=== PATIENT | female | born 1985 | race Caucasian/White ===

== ENCOUNTER 2024-01-19 10:15 | Emergency (ER) | payer OTHER, SELFPAY ==
--- NOTE | ~2024-01-19 | XR_ITS ---
EXAMINATION: XR HAND, RIGHT CLINICAL INFORMATION: Pain and swelling over second MCP joint COMPARISON: None available. TECHNIQUE: PA, lateral, and oblique views of the right hand. FINDINGS: The bones and soft tissues are normal. No fracture. Alignment is anatomic. Joint spaces are maintained. No erosions or soft tissue calcifications. XR/XR hand RT min 3V IMPRESSION: Normal right hand.
[2024-01-19 10:42] VITALS: PULSE 70; RESP 16; TEMP 36.6; O2SAT 98; BMI 29.3
[2024-01-19 10:46] VITALS: BP 114/72
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
[2024-01-19] MEDS: Acetaminophen 325 MG TABLET 975 MG PO (13:33)
[2024-01-19] MEDS: Diphth,Pertus(ACell),Tet Adult 0.5 ML SYRINGE IM (13:34)
[2024-01-19] MEDS: Amoxicillin/Potassium Clav 875 MG TABLET PO (13:34)
[2024-01-19 14:45] VITALS: BP 120/75; PULSE 72; RESP 20; TEMP 36.6; O2SAT 100
== END 2024-01-19 14:45 | disposition home or self-care (01) ==
PROVIDERS: Emergency Provider Student in an Organized Health Care Education/Training Program
DX: S61.250A Open bite of right index finger without damage to nail, initial encounter (principal); W54.0XXA Bitten by dog, initial encounter; Y93.89 Activity, other specified; Y92.9 Unspecified place or not applicable; Y99.9 Unspecified external cause status; Z23 Encounter for immunization
CPT/HCPCS: 73130; 90471; 90715; 99283; 99284

== ENCOUNTER 2024-03-23 09:12 | Outpatient (AMB) | payer OTHER, SELFPAY ==
--- NOTE | 2024-03-23 09:45 | MHC.OFFWIV ---
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 she has a hx of kidney stones Allergies No Known Allergies [No Known Allergies*] Allergy (Verified 03/23/24 09:57) Do you need a note to return to daycare/school/sports/work: No HPI HPI Comments History of Present Illness Details Here today with concerns for a kidney stone. Reports about 1 week ago developed left-sided back pain that radiates to her left lower abdomen associated with vomiting. Her symptoms have come and go over the last week. Yesterday she developed a headache. She has been doing her best to stay hydrated however given that pain and vomiting she feels that she may be a little bit dehydrated. She is active with Urology lower chronic renal calculi stating that she has 18 stones in the left kidney. Reports that she has chronic microscopic hematuria. She denies fever, vaginal discharge. She does admit to diarrhea -Nonbloody. Review of Systems Const All systems reviewed & are unremarkable except as noted in HPI and below Physical Exam Vital Signs: Last Vital Signs Temp 98.2 F 03/23/24 09:47 Pulse 74 03/23/24 09:47 BP 110/70 03/23/24 09:47 Pulse Ox 98 03/23/24 09:47 Oxygen Delivery Method Room Air 03/23/24 09:47 BMI result Body Mass Index 28.9 Const Other: Awake alert oriented, nontoxic Mucous membranes moist Regular rate and rhythm Normoactive bowel sounds x4, abdomen soft, nontender, no peritoneal signs Negative CVAT bilat however reports that she has improvement in the pain in her left lower quadrant with palpation of her left back Results AMB Urinalysis, Automated UA Leukoctes 0 Deidra/uL Last Edit by ALEXEI Sánchez on 03/23/24 09:54 UA Nitrite Negative Last Edit by ALEXEI Sánchez on 03/23/24 09:54 UA Urobilinogen 0.2 mg/dL Last Edit by ALEXEI Sánchez on 03/23/24 09:54 UA Protein 0 mg/dL Last Edit by ALEXEI Sánchez on 03/23/24 09:54 UA pH 6.0 Last Edit by ALEXEI Sánchez on 03/23/24 09:54 UA Blood 10 Aric/uL Last Edit by ALEXEI Sánchez on 03/23/24 09:54 UA Specific [place] 1.030 Last Edit by ALEXEI Sánchez on 03/23/24 09:54 UA Ketone Negative Last Edit by ALEXEI Sánchez on 03/23/24 09:54 UA Bilirubin 0 mg/dL Last Edit by ALEXEI Sánchez on 03/23/24 09:54 UA Glucose 0 mg/dL Last Edit by ALEXEI Sánchez on 03/23/24 09:54 Results Reviewed Results Reviewed: Laboratory Last Values Urine pH (Auto) 6.0 03/23/24 09:53 Specific [place] (Auto) 1.030 03/23/24 09:53 Urine Protein (Auto) 0 mg/dL 03/23/24 09:53 Glucose (UA)(Auto) 0 mg/dL 03/23/24 09:53 Urine Ketones (Auto) Negative 03/23/24 09:53 Urine Blood (Auto) 10 Aric/uL 03/23/24 09:53 Urine Nitrite (Auto) Negative 03/23/24 09:53 Urine Bilirubin (Auto) 0 mg/dL 03/23/24 09:53 Urine Urobilinogen (Auto) 0.2 mg/dL 03/23/24 09:53 Leukocyte Esterase (Auto) 0 Deidra/uL 03/23/24 09:53 Assessment & Plan Assessment & Plan (1) Renal calculus, left: Code(s): N20.0 - Calculus of kidney Plan: . Plan . Orders: Orders AMB Urinalysis Automated Today Z13.9 - Encounter for screening, unspecified Medications: New amoxicillin-pot clavulanate 875-125 mg 1 tab PO BID 14 tabs 0RF 7 days ondansetron 4 mg PO Q8H PRN 15 tabs 0RF nausea and vomiting 5 days tamsulosin 0.4 mg PO BEDTIME 30 caps 0RF Discontinued amoxicillin-pot clavulanate 875-125 mg Discontinued Reason: Patient Completed Course 1 tab PO BID 5 days 10 tabs 0RF Patient Instructions: Treat today for suspected renal stone with antibiotics and tamsulosin. P.r.n. Zofran to prevent nausea. Advised to liberally hydrated using electrolyte solution as well as cucumber lemon water as this can help renal stones. Please call your urologist on Monday and let them know that you were seen and treated today. Should her symptoms worsen advised to follow-up. Coding Level of Care Code Est Pt Level 4 (49529) Diagnoses Renal calculus, left N20.0
[2024-03-23 09:47] VITALS: BP 110/70; PULSE 74; TEMP 36.8; O2SAT 98; BMI 28.9
== END 2024-03-23 10:38 | disposition home or self-care (01) ==
PROVIDERS: Visit Provider Nurse Practitioner Family
DX: N20.0 Calculus of kidney (principal)
CPT/HCPCS: 81003; 99051; 99214

== ENCOUNTER 2024-05-28 09:15 | Outpatient (AMB) | payer OTHER, SELFPAY ==
--- NOTE | 2024-05-28 09:23 | AM.OFFWIN_ITS ---
Intake Vital Signs 3 05/28/24 09:24 Height 5 ft 1 in Weight 147 lb BMI 27.8 BP 112/80 Blood Pressure Location Lt brachial Position Sitting Pulse 64 Pulse Source Pulse Oximeter Temp 97.4 F Temp Source Temporal Artery Scan Pulse Oximetry (%) 98 Oxygen Delivery Method Room Air Intake Visit Reasons: Belly button piercing infected Intake Note: pt c/o navel piercing infection Patient Tobacco Use Status: Never used Tobacco Allergies No Known Allergies [No Known Allergies*] Allergy (Verified 05/28/24 09:23) Do you need a note to return to daycare/school/sports/work: Yes HPI HPI Comments 2 History of Present Illness0 Details 39 y/o female patient who presents to [facility] in clinic with c/o belly button infection since last week. She had a piecing 14 years ago but has not been wearing any jewelry at the area. Denies fevers, chills, nuasea or vomiting. [facility] Social History Patient Tobacco Use Status: Never used Tobacco Physical Exam Vital Signs: Last Vital Signs Temp 97.4 F 05/28/24 09:24 Pulse 64 05/28/24 09:24 BP 112/80 05/28/24 09:24 Pulse Ox 98 05/28/24 09:24 Oxygen Delivery Method Room Air 05/28/24 09:24 BMI result Body Mass Index 27.8 Const General: comfortable and no acute distress Nutritional Appearance: obese Orientation/consciousness: patient oriented x3 Skin Other: Small abscess filled with yellow drainage, Erythema and tender General skin exam: dry skin and erythema Lesions: lesion noted (belly button) Full body images: 2 1. Small abscess filled with yellow drainage, Erythema and tender Neuro General: patient oriented x3, gait normal and moves all extremities Psych Speech and movement: Normal speech and movement present Assessment & Plan Assessment & Plan (1) Cellulitis of skin: Code(s): L03.90 - Cellulitis, unspecified Plan: Take medications as prescribed Apply warm compress to the skin to allow drainage Acetaminophen for pain relief Medications: New 2 sulfamethoxazole-trimethoprim 800-160 mg (Bactrim DS) 1 tab PO Q12H 14 tabs 0RF 7 days L03.90 - Cellulitis, unspecified Coding Level of Care Code Est Pt Level 3 (42607) Diagnoses Cellulitis of skin L03.90 Time Spent (min) 15
[2024-05-28 09:24] VITALS: BP 112/80; PULSE 64; TEMP 36.3; O2SAT 98; BMI 27.8
== END 2024-05-28 11:06 | disposition home or self-care (01) ==
PROVIDERS: Visit Provider Nurse Practitioner Family
DX: L03.90 Cellulitis, unspecified (principal)
CPT/HCPCS: 99213

== ENCOUNTER → 2024-11-27 15:30 | Outpatient (REF) | payer OTHER, SELFPAY ==
--- NOTE | ~2024-11-27 | US_ITS ---
EXAMINATION: US RETROPERITONEAL LIMITED, LEFT(RENAL ONLY) CLINICAL INFORMATION: Calculus of kidney.. COMPARISON: None available. TECHNIQUE: Real-time imaging of the left kidney. FINDINGS: LEFT KIDNEY: 11.2 x 4.9 x 4 x 1 cm (SAG x AP x TRV). The kidney is normal in size, contour, and echogenicity. Renal cortical thickness is normal. No focal parenchymal lesions. No hydronephrosis. Echogenic renal pyramids. There are multiple small echogenic foci, with twinkle artifact, largest in the lower pole measuring 6 x 3 x 5 mm. These are consistent with calculi. US/US renal LT IMPRESSION: 1. Numerous echogenic foci with twinkle artifact consistent with nonobstructing calculi, largest in the lower pole measuring 6 x 3 x 5 mm. 2. Echogenic renal pyramids, nonspecific, but suggestive of medullary nephrocalcinosis. Differential includes hypercalcemia, medullary sponge kidney, renal tubular acidosis type I, among other less likely etiologies. Electronically signed by: Ravi Singleton MD 11/27/2024 04:40 PM [facility]
== END | disposition home or self-care (01) ==
LOC: HO.US 15:30
PROVIDERS: Visit Provider Internal Medicine
DX: N20.0 Calculus of kidney (principal)
CPT/HCPCS: 76775

== ENCOUNTER → 2024-11-27 15:32 | Outpatient (BNV) | payer OTHER, SELFPAY | PROVIDERS: Visit Provider Radiology Diagnostic Radiology | DX: N20.0 Calculus of kidney (principal) | CPT/HCPCS: 76775 ==

== ENCOUNTER 2024-12-09 06:49 | Emergency (ER) | payer OTHER, SELFPAY ==
--- NOTE | ~2024-12-09 | CT_ITS ---
CLINICAL HISTORY: L flank pain CT abdomen and pelvis without contrast Comparison: 08/01/2018 Findings: The lung bases are clear. Unremarkable gallbladder and solid organs. There are bilateral renal parenchymal calculi. No bowel obstruction, pneumoperitoneum, or pneumatosis. Pelvic contents unremarkable. Normal appendix. No acute fracture. IMPRESSION: No acute findings. This document has been electronically signed by: Gerson Verma MD on 12/09/2024 09:00:51
[2024-12-09 06:54] VITALS: BP 121/70; PULSE 61; RESP 20; TEMP 36.1; O2SAT 98; BMI 27.3
[2024-12-09 07:19] LABS: MANUAL DIFF FLAG NO
--- NOTE | 2024-12-09 07:19 | ED.ABDPAIN ---
HPI - Abdominal Pain General Chief Complaint: Abdominal Pain Stated Complaint: Kidney Stone Time Seen by Provider: 12/09/24 07:07 Source: patient and old records reviewed Mode of arrival: ambulatory Limitations: no limitations History of Present Illness ED Provider: SHANON HPI narrative: 39 yo female with PMH of nephrolithiasis on recent US 11/27/24, ADHD, anxiety here with c/o L anterior upper rib pain x 1 month with intermittent vomiting. She denies fevers, she is urinating more frequently and when she sneezes she urinates. She saw streaks of blood yesterday. She has hx about 6 years ago with urosepsis and ureterolithiasis at [facility]. She saw PCP 11/27/24 with US and they started her on oxycodone which did not really help. No fevers reported. She states she cannot take the pain anymore and she does not like her urologist because he is not taking her pain seriously. MD elicited complaint: flank pain Pertinent past history: kidney stones Onset (ago): month(s) (1) Pain Consistency: constant Location: LUQ and L flank Severity: moderate Quality: aching Radiation: none Migration to: no migration Exacerbating factors: movement Relieving factors: nothing Context: history of similar episodes Associated symptoms: nausea, vomiting, dysuria and hematuria Related Data Home Medications ?Medication ?Instructions ?Recorded ?Confirmed dextroamphetamine-amphetamine ER 1 cap PO QAM 03/23/24 11/27/24 10 mg 24hr capsule,extend release lorazepam 1 mg tablet 1 mg PO BID 03/23/24 11/27/24 venlafaxine 150 mg 150 mg PO DAILY 03/23/24 11/27/24 capsule,extended release 24 hr trazodone 100 mg tablet 100 mg PO BEDTIME PRN 05/28/24 11/27/24 Previous Rx's ?Medication ?Instructions ?Recorded levofloxacin 500 mg tablet 500 mg PO DAILY 5 days #5 tabs 11/27/24 oxycodone 5 mg capsule 5 mg PO Q8H PRN pain 5 days #14 11/27/24 caps cyclobenzaprine 10 mg tablet 10 mg PO TID PRN muscle spasm #20 12/09/24 tabs lidocaine 5 % topical patch 1 patch topical DAILY #30 ea 12/09/24 Allergies Allergy/AdvReac Type Severity Reaction Status Date / Time No Known Allergies Allergy Verified 12/09/24 06:55 [No Known Allergies*] Review of Systems Review of Systems Constitutional : No Weight loss, No Fever, No Chills ENT/Mouth : No sore throat, No Rhinorrhea Eyes: No Swelling, No Redness Cardiovascular : No Chest Pain, No SOB, NoEdema Respiratory : No Cough, No Sputum, No Wheezing Gastrointestinal : Positive Nausea, Positive Vomiting, no Diarrhea, positive abdominal Pain, No Hematochezia, No Melena Genitourinary : pos Dysuria, pos Urinary Frequency, pos Hematuria, No Urgency Musculoskeletal : No joint pain, No Myalgias, No Joint Swelling Skin : No Skin Lesions, No rash Neuro : No Weakness, No Numbness, No Dizziness, No Headache All other systems reviewed and are negative. [facility] Past Medical History Attestation statement: The following information was validated with the patient. Source: old records reviewed Medical History (Updated 12/09/24 @ 09:49 by Lanette Russ DO) Renal calculi Social History Social History Alcohol intake: current Alcohol intake frequency: a few times a month Patient Tobacco Use Status: Never used Tobacco Smoked in Last 30 Days: No Use of substances other than those prescribed or required for medical reasons: No Advance Directives: Yes Advance Directives Information Provided: Yes Advance Directives on File: No Do you have a plan to hurt others: No Plan Physical Exam ED Vital Signs: Vital Signs - 24 hr 12/09/24 06:54 12/09/24 08:47 Temperature 97 F 97.3 F Pulse Rate 61 64 Respiratory Rate 20 14 Blood Pressure 121/70 101/51 L Pulse Oximetry 98 99 Oxygen Delivery Method Room Air Room Air BMI result Body Mass Index 27.3 Appearance: Alert. Oriented X3. No acute distress. Eyes: Pupils equal, round and reactive to light. ENT: Pharynx normal. Neck: Normal inspection. Neck supple. CVS: Normal heart rate and rhythm. Pulses normal. Respiratory: No respiratory distress. Breath sounds normal. Abdomen: Soft and ttp along L lower anterior ribs. Skin: Skin warm and dry. Normal skin color. Normal skin turgor. Extremities: No lower extremity edema. Neuro: Oriented X 3. No motor deficit. No sensory deficit. CN2-12 intact Medical Decision Making Medical Decision Making MDM Narrative: 39 yo female with PMH of nephrolithiasis on recent US 11/27/24, ADHD, anxiety here with c/o 1 month of intermittent n/v, L lower rib pain, urinary frequency and some incontinence with sneezing. She usually goes to [facility] but feels they are not taking her seriously. At this time will obtain CT scan for L flank pain to rule out obstruction given recent US, UA and labs, IV morphine for pain. She has atypical lower rib pain on exam which is not what I would expect for pyelo/renal colic. Differential Diagnosis Differential Diagnoses: The differential diagnosis associated with the presentation includes abd wall strain, renal colic, chronic pain Admission/Observation Consideration of admission/observation: Escalation of care including admission/observation considered no UTI, labs reassuring, no obstructive stone can follow up with PCP/urologist Lab Data [facility] [place] Lab Attestation statement: I reviewed the patient's lab results. 12/09/24 07:15 12/09/24 07:15 Labs: Lab Results 12/09/24 12/09/24 Range/Units 07:15 09:34 WBC 7.1 (4.8-10.8) X10*3/uL RBC 4.44 (4.20-5.50) X10*6/uL Hgb 13.4 (12.0-16.0) g/dl Hct 40.9 (37.0-47.0) % MCV 92.1 (80.0-98.0) fL MCH 30.2 (27.0-33.0) pg MCHC 32.8 (31.0-35.0) g/dl RDW 13.2 (11.0-16.0) % Plt Count 314 (160-400) X10*3/uL MPV 8.3 L (9.4-12.3) fL Immature Gran % (Auto) 0.3 (0.0-0.4) % Neut % (Auto) 54.9 (45-73) % Lymph % (Auto) 26.7 (20-40) % [place] % (Auto) 5.9 (2-11) % Eos % (Auto) 11.6 H (0-4) % Baso % (Auto) 0.6 (0-2) % Lymph # (Auto) 1.9 (1.2-4.9) X10*3/uL [place] # (Auto) 0.4 (0.1-1.2) X10*3/uL Eos # (Auto) 0.8 H (0.0-0.4) X10*3/uL Baso # (Auto) 0.0 (0.0-0.2) X10*3/uL Abs Immat Gran (auto) 0.02 (0.00-0.03) X10*3/uL Absolute Neuts (auto) 3.9 (2.0-8.3) x10*3/uL Absolute Nucleated RBC 0.000 (0.0-0.012) X10*3/uL Nucleated RBC % (auto) 0.0 (0.0-0.2) /100WBC Sodium 139 (135-145) mmol/L Potassium 4.3 (3.3-5.1) mmol/L Chloride 105 (96-108) mmol/L Carbon Dioxide 26 (22-29) mmol/L Anion Gap 12 (12-20) BUN 10 (9-16) mg/dL Creatinine 0.76 (0.5-1.4) mg/dL Estim Creat Clear Calc 83.5 Estimated GFR > 60 Random Glucose 104 (60-115) mg/dL Calcium 9.3 (8.4-10.2) mg/dL Total Bilirubin 0.2 (0.0-1.0) mg/dL Direct Bilirubin < 0.2 (0.0-0.5) mg/dL AST 20 (5-31) U/L ALT 13 (0-31) U/L Alkaline Phosphatase 101 (39-117) U/L Total Protein 7.7 (6.5-8.0) g/dL Albumin 4.3 (3.5-5.0) g/dL Beta HCG, Quant < 2 mIU/mL Urine Color Yellow Urine Appearance Cloudy Urine pH 7.0 (5.0-9.0) Ur Specific [place] 1.015 (1.005-1.025) Urine Protein Negative (Neg-Trace) mg/dL Urine Glucose (UA) Negative (Negative) mg/dL Urine Ketones Negative (Negative) mg/dL Urine Blood Negative (Negative) Urine Nitrite Negative (Negative) Ur Leukocyte Esterase Negative (Negative) Urine RBC 0-2 (0-2) /HPF Urine WBC 0-5 (0-5) /HPF Ur Squamous Epith Cells 11-20 (0-2) /HPF Urine Bacteria 4+ (None Seen) Hyaline Casts 0-2 (0-2) /LPF Independent Interpretation I performed an independent interpretation of an: CT Scan (n obstructing stone) Radiology Impression Discussion of test interpretation with radiology: I have reviewed the radiologist's reading. External Record Review External record reviewed: Outpatient record and Prior outpatient labs Prescription Management I considered prescription management with: Pain Medication and Other Medications Administered Discontinued Medications Generic Name Dose Route Start Last Admin Trade Name Freq PRN Reason Stop Dose Admin Sodium Chloride 1,000 mls @ 999 mls/hr 12/09/24 07:31 12/09/24 09:07 Ns IV 12/09/24 08:31 Infused .Q1H1M ONE Infusion Ketorolac Tromethamine 15 mg 12/09/24 07:31 12/09/24 07:44 Ketorolac Tromethamine 15 Mg/Ml Vial IVPUSH 12/09/24 07:32 15 mg ONCE ONE Administration Morphine Sulfate 4 mg 12/09/24 07:31 12/09/24 07:44 Morphine Sulfate 4 Mg/Ml Cartridge IVPUSH 12/09/24 07:32 4 mg ONCE ONE Administration Protocol Ondansetron HCl 4 mg 12/09/24 07:31 12/09/24 07:44 Ondansetron Hcl 4 Mg/2 Ml Vial IVPUSH 12/09/24 07:32 4 mg ONCE ONE Administration Discharge Plan Discharge Clinical Impression: Flank pain Patient Disposition: Home, Self-Care Instructions: Flank Pain (ED) Additional Instructions: labs reassuring no urinary tract infection we will send it off for culture and call if culture grows anything there is nothing obstructing the kidneys please return for any worsening symptoms or concerns follow up with urologist Findings: The lung bases are clear. Unremarkable gallbladder and solid organs. There are bilateral renal parenchymal calculi. No bowel obstruction, pneumoperitoneum, or pneumatosis. Pelvic contents unremarkable. Normal appendix. No acute fracture. IMPRESSION: No acute findings. Prescriptions: New cyclobenzaprine 10 mg tablet 10 mg PO TID PRN (Reason: muscle spasm) Qty: 20 0RF lidocaine 5 % adhesive patch,medicated 1 patch topical DAILY Qty: 30 0RF Rx Instructions: leave on most painful area for up to 12 hrs No Action dextroamphetamine-amphetamine 10 mg capsule,extended release 24hr 1 cap PO QAM lorazepam 1 mg tablet 1 mg PO BID venlafaxine 150 mg capsule,extended release 24hr 150 mg PO DAILY trazodone 100 mg tablet 100 mg PO BEDTIME PRN levofloxacin 500 mg tablet 500 mg PO DAILY 5 Days Qty: 5 0RF oxycodone 5 mg capsule 5 mg PO Q8H PRN (Reason: pain) 5 Days Qty: 14 0RF Rx Instructions: Partial Fill upon patient request. Referrals: [facility] Services [Provider Group] Stand Alone Forms: Work/School Release Print Language: Faroese
[2024-12-09 07:24] LABS: Basophils Percent Auto 0.6 % (0-2); Eosinophils Absolute Auto 0.8 X10*3/uL (0.0-0.4); Eosinophils Percent Auto 11.6 % (0-4); Hematocrit 40.9 % (37.0-47.0); Hemoglobin 13.4 g/dl (12.0-16.0); Imm Gran Abs Auto 0.02 X10*3/uL (0.00-0.03); Imm Gran Pct Auto 0.3 % (0.0-0.4); Lymphocytes Absolute Auto 1.9 X10*3/uL (1.2-4.9); Lymphocytes Percent Auto 26.7 % (20-40); Mean Corpuscular HGB Conc 32.8 g/dl (31.0-35.0); Mean Corpuscular Hemoglobin 30.2 pg (27.0-33.0); Mean Corpuscular Volume 92.1 fL (80.0-98.0); Mean Platelet Volume 8.3 fL (9.4-12.3); Monocytes Absolute Auto 0.4 X10*3/uL (0.1-1.2); Monocytes Percent Auto 5.9 % (2-11); Neutrophils Absolute Auto 3.9 x10*3/uL (2.0-8.3); Neutrophils Percent Auto 54.9 % (45-73); Platelet Count 314 X10*3/uL (160-400); Red Blood Count 4.44 X10*6/uL (4.20-5.50); Red Cell Distribution Width 13.2 % (11.0-16.0); White Blood Count 7.1 X10*3/uL (4.8-10.8)
--- NOTE | 2024-12-09 07:35 | PC.NURSE ---
pt is alert and oriented, skin pwd, respirations even and unlabored, pt is reporting for the last month having left sided flank pain that wraps around to the left upper rib/under her breast, left lower abd pain and nausea for several months, pt reports loosing weight, had an us done and showing stones in the kidney at that point, pt reports noticing blood in her urine last night and having episodes of incontinent when she sneezes/coughs. bowel sounds in all 4 quadrants and abd soft but tender in the left side
[2024-12-09 07:37] LABS: Alanine Aminotransferase 13 U/L (0-31); Albumin Level 4.3 g/dL (3.5-5.0); Alkaline Phosphatase 101 U/L (39-117); Anion Gap 12 (12-20); Aspartate Amino Transferase 20 U/L (5-31); Bilirubin Direct < 0.2 mg/dL (0.0-0.5); Bilirubin Total 0.2 mg/dL (0.0-1.0); Blood Urea Nitrogen 10 mg/dL (9-16); Calcium 9.3 mg/dL (8.4-10.2); Carbon Dioxide 26 mmol/L (22-29); Chloride 105 mmol/L (96-108); Creatinine Clr Calc Pharmacy 83.5; Estimated Glomerular Filt Rate > 60; Glucose Random 104 mg/dL (60-115); Potassium 4.3 mmol/L (3.3-5.1); Sodium 139 mmol/L (135-145); Total Protein 7.7 g/dL (6.5-8.0)
[2024-12-09 07:44] LABS: HCG Quantitative < 2 mIU/mL
[2024-12-09] MEDS: ondansetron HCL 4 MG/2 ML VIAL IVPUSH (07:44)
[2024-12-09] MEDS: 0.9 % Sodium Chloride 1,000 ML 999 ML IV (07:44)
[2024-12-09] MEDS: Ketorolac Tromethamine 15 MG/ML VIAL IVPUSH (07:44)
[2024-12-09] MEDS: Morphine Sulfate 4 MG/ML CARTRIDGE IVPUSH (07:44)
--- OUTSIDE RECORDS SUMMARY | 2024-12-09 07:50 | XMS_ITS | Continuity of Care Document ---
Author Organization [facility] Boubacar lt Address [address] [place] [address]- Care Team Providers Care Computer Systems Software Engineer Name Role Phone Carmel Shah Primary Care Physician [phone] Encounter [facility] Date(s): 10/29/24 - 11/28/24 [facility] Adult [address] [place] [address]- Attending Physician: AdmtrKeila Admitting Physician: AdmtrKeila Referring Physician: Admtr, [id number] Encounter Type: Triage Allergies, Adverse Reactions, Alerts No Known Allergies Immunizations Given and Recorded Vaccine Date Status Refusal Reason tetanus/diphtheria/pertussis, acel(Tdap) 01/19/24 Recorded tetanus/diphtheria/pertussis, acel(Tdap) 01/07/15 Recorded tetanus/diphtheria/pertussis, acel(Tdap) 07/01/12 Given tetanus/diphtheria/pertussis, acel(Tdap) 06/29/12 Recorded SARS-CoV-2 (COVID-19) mRNA-1273 vaccine 5/20/21 R ecorded SARS-CoV-2 (COVID-19) mRNA-1272 vaccine 02/11/21 R ecorded influenza virus vaccine, inactivated 01/07/15 Nathanael rded Medications amphetamine-dextroamphetamine 10 mg oral capsule, extended release 1 capsule = 10 mg, By Mouth, Daily in AM, # 30 capsule, 0 Refills, Maintenance, 11/15/24 3:01:00 PM EST, ER Capsule, [facility][id number], Partial fill upon patient request if the prescription is for a schedule II opioid drug., 1 capsule By Mouth Daily in AM,x30 days, 152, cm, 10/29/24 9:23:00 EST, Height Start Date: 11/15/24 Stop Date: 12/15/24 Status: Ordered Quantity: 30.0 Unit: capsule Repeat number: 1 Indication: Attention-deficit hyperactivity disorder, unspecified type cloNIDine 0.1 mg oral tablet See Instructions, 2 tablet By Mouth Daily at bedtime, # 60 tablet, Refills 11, Tot. Refills 11, Maintenance, 10/29/24 9:30:00 AM EST, Instructions Replace Required Details, Route to Pharmacy Electronically, [facility] #[id number], Partial fill upon patient request if the prescription is for a schedule II opioid drug., 152, cm, 10/29/24 9:23:00 EST, Height Start Date: 10/29/24 Status: Ordered Quantity: 60.0 Unit: tablet Repeat number: 12 Diflucan 150 mg oral tablet 1 tablet = 150 mg, By Mouth, Once, Can repeat dose after 72 hours if still symptomatic., # 2 tablet, 1 Refills, Soft Stop, 10/29/24 9:34:00 AM EST, Tablet, [facility] #[id number], Partial fill upon patient request if the prescription is for a schedule II opioid drug., 152, cm, 10/29/24 9:23:00 EST, Height Start Date: 10/29/24 Status: Ordered Quantity: 2.0 Unit: tablet Repeat number: 2 LORazepam 1 mg oral tablet 1 tablet, By Mouth, Every 12 hours, PRN NEEDED FOR ANXIETY, # 60 tablet, 1 Refills, Maintenance,12/06/24 3:40:00 PM EST, [facility] #[id number], 152, cm, 10/29/24 9:23:00 EST, Height Start Date: 12/06/24 Stop Date: 02/04/25 Status: Ordered Quantity: 60.0 Unit: tablet Repeat number: 2 LORazepam 1 mg oral tablet 1 tablet, By Mouth, Every 12 hours, PRN NEEDED FOR ANXIETY, for 30 days, # 60 tablet, 1 Refills,Hard Stop 12/06/24 3:40:00 PM EST, 10/07/24 3:40:00 PM EST, [facility] #[id number], 152, cm, 08/29/24 9:35:00 EST, Height Start Date: 10/07/24 Stop Date: 12/06/24 Status: Ordered Quantity: 60.0 Unit: tablet Repeat number: 2 traZODone 150 mg oral tablet 1 tablet = 150 mg, By Mouth, Daily at bedtime, # 90 tablet, 0 Refills, Maintenance, 10/29/24 9:30:00 AM EST, Tablet, [facility] #[id number], Partial fill upon patient request if the prescription is for a schedule II opioid drug., 152, cm, 10/29/24 9:23:00 EST, Height Start Date: 10/29/24 Status: Ordered Quantity: 90.0 Unit: tablet Repeat number: 1 venlafaxine 150 mg oral capsule, extended release 1 capsule, By Mouth, Daily, # 90 capsule, 0 Refills, Maintenance, 09/17/24 8:57:00 AM EST, [facility]/pharmacy #[id number], 152, cm, 08/29/24 9:35:00 EST, Height Start Date: 09/17/24 Status: Ordered Quantity: 90.0 Unit: capsule Repeat number: 1 Problem List Condition Confirmation Course Effective Dates Status Health St atus Informant Anxiety Confirmed Active ADHD Confirmed Active Carpal tunnel syndrome, left Confirmed Active Depression Confirmed Active Ganglion cyst of wrist Confirmed Active Strain of right wrist Confirmed Active Kidney stones Confirmed Active Trigger thumb of both hands Confirmed Active Social History Social History Type Response Smoking Status Unable to Obtain Sexual Orienation Unable to Obtain Gender Identity Unable to Obtain Sex Sex Representation Female (finding) Patient Care team information Care Team Personnel Name: Ted ZIMMERMAN, Naima Rainey Position: [facility] Onco RN Member Role: Primary Care Nurse Name: Carmel Shah Position: [facility] PCO Associate Professional Member Role: PCP Address: [address] [place] [id number] Telecom: Care Team Related Persons Name: PACO FRAZIER Name: NORI NGUYỄN Insurance Providers Guarantor name: BRANDI FRAZIER Health Plan Information #: 1 Payer: AET[employer] NON HMO PLANS Member Number: NA Policy Number: NA Group Number: NA
--- OUTSIDE RECORDS SUMMARY | 2024-12-09 07:50 | XMS_ITS | Continuity of Care Document ---
Author Organization [facility] [place] Address [address] [place] [address]- Care Team Providers Care Global Project Manager Name Role Phone Carmel Shah Primary Care Physician [phone] Encounter [facility] Date(s): 10/31/24 - 11/30/24 [facility] Adult [address] [place] [id number]- Encounter Type: Triage Allergies, Adverse Reactions, Alerts No Known Allergies Immunizations Given and Recorded Vaccine Date Status Refusal Reason tetanus/diphtheria/pertussis, acel(Tdap) 01/19/24 Recorded tetanus/diphtheria/pertussis, acel(Tdap) 01/07/15 Recorded tetanus/diphtheria/pertussis, acel(Tdap) 07/01/12 Given tetanus/diphtheria/pertussis, acel(Tdap) 06/29/12 Recorded SARS-CoV-2 (COVID-19) mRNA-1273 vaccine 03/11/21 R ecorded SARS-CoV-2 (COVID-19) mRNA-1273 vaccine 02/11/21 R ecorded influenza virus vaccine, inactivated 01/07/15 Nathanael rded Medications amphetamine-dextroamphetamine 10 mg oral capsule, extended release 1 capsule = 10 mg, By Mouth, Daily in AM, # 30 capsule, 0 Refills, Maintenance, 11/15/24 3:01:00 PM EST, ER Capsule, [facility] #[id number], Partial fill upon patient request if the [...] Replace Required Details, Route to Pharmacy Electronically, [facility] #[id number], Partial fill upon patient request if the [...] Soft Stop, 10/29/24 9:34:00 AM EST, Tablet, [facility] #[id number], Partial fill upon patient request if the prescription is for a schedule II opioid drug., 152, cm, 10/29/24 9:23:00 EST, Height Start Date: 10/29/24 Status: Ordered Quantity: 2.0 Unit: tablet Repeat number: 2 LORazepam 1 mg oral tablet 1 tablet, By Mouth, Every 12 hours, PRN NEEDED FOR ANXIETY, # 60 tablet, 1 Refills, Maintenance,12/06/24 3:40:00 PM EST, [facility] #[id number], 152, cm, 10/29/24 9:23:00 EST, Height Start Date: 12/06/24 Stop Date: 02/04/25 Status: Ordered Quantity: 60.0 Unit: tablet Repeat number: 2 LORazepam 1 mg oral tablet 1 tablet, By Mouth, Every 12 hours, PRN NEEDED FOR ANXIETY, for 30 days, # 60 tablet, 1 Refills,Hard Stop 12/06/24 3:40:00 PM EST, 10/07/24 3:40:00 PM EST, [facility] #[id number], 152, cm, 08/29/24 9:35:00 EST, Height Start Date: 10/07/24 Stop Date: 12/06/24 Status: Ordered Quantity: 60.0 Unit: tablet Repeat number: 2 traZODone 150 mg oral tablet 1 tablet = 150 mg, By Mouth, Daily at bedtime, # 90 tablet, 0 Refills, Maintenance, 10/29/24 9:30:00 AM EST, Tablet, [facility] #[id number], Partial fill upon patient request if the prescription is for a schedule II opioid drug., 152, cm, 10/29/24 9:23:00 EST, Height Start Date: 10/29/24 Status: Ordered Quantity: 90.0 Unit: tablet Repeat number: 1 venlafaxine 150 mg oral capsule, extended release 1 capsule, By Mouth, Daily, # 90 capsule, 0 Refills, Maintenance, 09/17/24 8:57:00 AM EST, [facility]/pharmacy #[id number], 152, cm, 08/29/24 9:35:00 EST, [...] Personnel Name: Ted ZIMMERMAN, Naima Rainey Position: [facility] Onco RN Member Role: Primary Care Nurse Name: Carmel Shah Position: [facility] PCO Associate Professional Member Role: PCP Address: [address] [place] [address] Telecom: Care Team Related Persons Name: PACO FRAZIER Name: NORI NGUYỄN Insurance Providers Guarantor name: BRANDI FRAZIER [facility] Plan Information #: 1 Payer: AET NON HMO PLANS Member Number: NA Policy Number: NA Group Number: NA
[2024-12-09 08:47] VITALS: BP 101/51; PULSE 64; RESP 14; TEMP 36.3; O2SAT 99
[2024-12-09 09:41] LABS: Appearance Urine Cloudy; Color Urine Yellow; Glucose Urine UA Negative (Negative); Leukocyte Esterase Urine Negative (Negative); Nitrite Urine Negative (Negative); Specific Gravity - Urine 1.015 (1.005-1.025); Urine Blood Negative (Negative); Urine Ketones Negative (Negative); Urine Protein Negative (Neg-Trace)
[2024-12-09 09:45] LABS: Bacteria Urine 4+ (None Seen); Hyaline Casts Urine 0-2 /LPF (0-2); RBC Urine 0-2 /HPF (0-2); WBC Urine 0-5 /HPF (0-5)
[2024-12-09 10:30] VITALS: BP 101/51; PULSE 64; RESP 14; TEMP 36.3; O2SAT 99
== END 2024-12-09 10:30 | disposition home or self-care (01) ==
PROVIDERS: Emergency Provider Emergency Medicine
DX: R10.12 Left upper quadrant pain (principal); R10.2 Pelvic and perineal pain; R11.2 Nausea with vomiting, unspecified; R30.0 Dysuria; R07.89 Other chest pain; R31.9 Hematuria, unspecified; Z79.899 Other long term (current) drug therapy
CPT/HCPCS: 36415; 74176; 80053; 81001; 82248; 84702; 85025; 96361; 96374; 96375; 99284; 99285; J1885; J2270; J2405

== ENCOUNTER → 2024-12-09 07:21 | Outpatient (BNV) | payer OTHER, SELFPAY | PROVIDERS: Emergency Provider Emergency Medicine; Visit Provider Specialist | DX: R10.9 Unspecified abdominal pain (principal) | CPT/HCPCS: 74176 ==

== ENCOUNTER 2025-07-29 06:31 | Emergency (ER) | payer OTHER, SELFPAY ==
[2025-07-29 06:37] VITALS: BP 116/74; PULSE 89; RESP 18; TEMP 36.6; O2SAT 92; BMI 27.7
[2025-07-29 06:54] VITALS: BP 116/74; PULSE 89; RESP 18; TEMP 36.6; O2SAT 92
--- NOTE | 2025-07-29 06:57 | PC.NURSE ---
40 F presents to ED with dog bite from her dog to LLE to upper side of left calf/back of knee. Pt sts dog is up to date on vaccines including rabies. Pt sts she was trying to break up her dogs from fighting when one of them bit her. A+OX4, calm, cooperative. RR even and unlabored, denies CP or SOB. CSMs present. Pt denies any other complaints, sts 8/10 pain.
--- NOTE | 2025-07-29 07:19 | ED.ANIMALBIT ---
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 Denies injury to other area, or fall. Reports dog and herself are both up-to-date on vaccinations. Related Data Home Medications ?Medication ?Instructions ?Recorded ?Confirmed dextroamphetamine-amphetamine ER 1 cap PO QAM 03/23/24 11/27/24 10 mg 24hr capsule,extend release lorazepam 1 mg tablet 1 mg PO BID 03/23/24 11/27/24 venlafaxine 150 mg 150 mg PO DAILY 03/23/24 11/27/24 capsule,extended release 24 hr trazodone 100 mg tablet 100 mg PO BEDTIME PRN 05/28/24 11/27/24 Previous Rx's ?Medication ?Instructions ?Recorded levofloxacin 500 mg tablet 500 mg PO DAILY 5 days #5 tabs 11/27/24 oxycodone 5 mg capsule 5 mg PO Q8H PRN pain 5 days #14 11/27/24 caps cyclobenzaprine 10 mg tablet 10 mg PO TID PRN muscle spasm #20 12/09/24 tabs lidocaine 5 % topical patch 1 patch topical DAILY #30 ea 12/09/24 permethrin 5 % topical cream 1 appl topical Q14D 2 doses #60 05/01/25 grams prednisone 10 mg tablet 10 mg PO DIRECTED 6 days #20 05/01/25 tabs acetaminophen 500 mg tablet 500 mg PO Q6H PRN fever or pain 07/29/25 (Tylenol Extra Strength) #14 tabs amoxicillin 875 mg-potassium 1 tab PO BID 7 days #14 tabs 07/29/25 clavulanate 125 mg tablet ibuprofen 600 mg tablet 600 mg PO Q8H PRN fever or pain 07/29/25 #14 tabs Allergies Allergy/AdvReac Type Severity Reaction Status Date / Time No Known Allergies (No Known Allergy Verified 07/29/25 06:38 Allergies*) Review of Systems Review of Systems: Yes all other systems are reviewed and are negative Constitutional: Constitutional: Reports as per [facility] Past Medical History Attestation statement: The following information was validated with the patient. Source: old records reviewed Medical History Renal calculi Social History Social History Alcohol intake: current Alcohol intake frequency: 0-2 drinks per day Patient Tobacco Use Status: Never used Tobacco Smoked in Last 30 Days: No Use of substances other than those prescribed or required for medical reasons: No Advance Directives: Yes Advance Directives Information Provided: Yes Advance Directives on File: No Physical Exam ED Vital Signs: Vital Signs - 24 hr 07/29/25 06:37 07/29/25 06:54 07/29/25 09:00 Temperature 97.9 F 97.9 F 98 F Pulse Rate 89 89 68 Respiratory Rate 18 18 16 Blood Pressure 116/74 116/74 109/52 L Pulse Oximetry 92 92 99 Oxygen Delivery Method Room Air Room Air Room Air 07/29/25 09:31 Temperature 98 F Pulse Rate 68 Respiratory Rate 16 Blood Pressure 109/52 L Pulse Oximetry 99 Oxygen Delivery Method Room Air BMI result Body Mass Index 27.7 Const General: cooperative, healthy appearing and no acute distress Orientation/consciousness: patient oriented x3 Limitations: no limitations HENMT Head: Yes normal to inspection and Yes atraumatic Ears: hearing grossly normal bilaterally General nose exam: Normal external nose present Face and sinus: Yes normal facial exam Eyes General: appearance normal, both eyes and all related structures EOM: EOMs intact bilaterally Neck Neck: Yes normal visual inspection and Yes no meningeal signs Resp Effort & Inspection: normal respiratory effort and no respiratory distress Cardio Rate: regular rate Skin Other: Please refer to image above. Two dog bites noted to left upper posterior calf. Superficial. Surrounding swelling and ecchymosis noted. No active bleeding. Mildly tender to palpation. No crepitus. Neurovascularly intact distally. Compartments soft Rashes: no rashes Neuro General: patient oriented x3, tone normal and no meningeal signs Cranial nerves: Yes CN's II-XII intact bilaterally Gait exam (Neuro): Normal gait present Extrem General: Yes normal to inspection Medications Administered Discontinued Medications Generic Name Dose Route Start Last Admin Trade Name Freq PRN Reason Stop Dose Admin Bacitracin 1 appl 07/29/25 07:22 07/29/25 09:22 Bacitracin Oint 0.9 Gm Packet TOPICAL 07/29/25 07:23 1 appl ONCE ONE Administration Protocol Medical Decision Making Medical Decision Making MDM Narrative: 40-year-old female with no significant past medical history presenting to the ED complaining of dog bite to left leg 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 On exam vital signs stable, NAD, nontoxic appearing, physical exam as noted above, please refer to image. Dog up-to-date on rabies, patient up-to-date on vaccinations. No evidence of acute overlying infection/cellulitis or compartment syndrome at this time Plan: Local wound care, p.o. antibiotics, PCP f/u Discussed with patient we do not recommend closing animal bite wounds due to risk of infection Please refer to course for remaining clinical decision making, interpretation of labs/imaging results, and discussions with consultants and/or family members. Results discussed with patient including worrisome signs and symptoms and strict return precautions, and when to return to the emergency department. They verbalized understanding and feel safe for discharge at this time. Differential Diagnosis Differential Diagnoses: The differential diagnosis associated with the presentation includes As above External Record Review External record reviewed: Inpatient record, Office record, Outpatient record, Prior outpatient labs, Prior outpatient radiology, Primary care record and Outside ED record Tests considered The following testing was considered but not selected: As above Prescription Management I considered prescription management with: Pain Medication and Antibiotic Chronic Conditions Patient?s care impacted by: Other Social Determinants Patient?s care significantly limited by Social Determinants of Health including: Other Social Determinant of Health Discharge Plan Discharge Clinical Impression: Dog bite Patient Disposition: Home, Self-Care Instructions: Animal Bite (ED) Additional Instructions: Please keep wounds dry and clean If area becomes increasingly swollen, red, there is pus drainage, you have fever or increasing pain return to the emergency department Please have close follow up with your primary care doctor Augmentin as an antibiotic please take as prescribed until completion You may also apply topical antibiotic ointment like bacitracin or Neosporin Take Tylenol and ibuprofen as needed for pain Prescriptions: New acetaminophen [Tylenol Extra Strength] 500 mg tablet 500 mg PO Q6H PRN (Reason: fever or pain) Qty: 14 0RF ibuprofen 600 mg tablet 600 mg PO Q8H PRN (Reason: fever or pain) Qty: 14 0RF amoxicillin-pot clavulanate 875-125 mg tablet 1 tab PO BID 7 Days Qty: 14 0RF No Action cyclobenzaprine 10 mg tablet 10 mg PO TID PRN (Reason: muscle spasm) Qty: 20 0RF lidocaine 5 % adhesive patch,medicated 1 patch topical DAILY Qty: 30 0RF Rx Instructions: leave on most painful area for up to 12 hrs dextroamphetamine-amphetamine 10 mg capsule,extended release 24hr 1 cap PO QAM lorazepam 1 mg tablet 1 mg PO BID venlafaxine 150 mg capsule,extended release 24hr 150 mg PO DAILY trazodone 100 mg tablet 100 mg PO BEDTIME PRN levofloxacin 500 mg tablet 500 mg PO DAILY 5 Days Qty: 5 0RF oxycodone 5 mg capsule 5 mg PO Q8H PRN (Reason: pain) 5 Days Qty: 14 0RF Rx Instructions: Partial Fill upon patient request. prednisone 10 mg tablet 10 mg PO DIRECTED 6 Days Qty: 20 0RF Rx Instructions: see taper instructions (5,5,4,3,2,1) permethrin 5 % cream 1 appl topical Q14D Qty: 60 0RF Rx Instructions: apply second treatment 14 days after first treatment if live lice remain Referrals: Physician,Unknown J [Primary Care Provider, Medical] - 5 days Stand Alone Forms: Work/School Release Interventions: ED Discharge Assessment Last Done: 07/29/25 09:31 Discharge Date/Time: 07/29/25 09:31 Print Language: Icelandic
--- OUTSIDE RECORDS SUMMARY | 2025-07-29 07:27 | XMS_ITS | Patient Health Record ---
Author Organization [facility] Address [address] [place] [address] Care Team Providers Care Beater Dumper Name Role Phone Santo Monreal MD Primary Care Provider Lexy Marie Unavailable [phone] Allergies No Known Allergies Reason For Referral No Information Medications Medication SIG (Take, Route, Frequency, Duration) Notes Start Date End Date Status cloNIDine HCl 0.1 MG 1 tablet Orally Onc e a day; Duration: 30 day(s) Active Dextroamphetamine Sulfate 10 MG 1 tablet in the morning Orally Once a day Active LORazepam 1 MG 1 tablet at bedtime as needed Orally Once a day Active Venlafaxine HCl ER 150 MG 1 capsule with food Orally Once a day; Duration: 30 day(s) Active Social History Tobacco Use: Social History Observation Description Date Details (start date - stop date) Former Smoker NA - NA Tobacco Use/Smoking Question Answer Notes Are you a: former smoker Additional Findings: Tobacco Non-User Current no n-smoker Alcohol Screen Question Answer Notes Did you have a drink contain ing alcohol in the past year? Yes How often did you have a dri nk containing alcohol in the past year? Monthly or less (1 point) How often did you have 6 or more drinks on one occasion in the past year? Less than monthly (1 point) Points 2 Interpretation Negative Tobacco use other than smoking: Question Answer Notes Are you an other tobacco user? No Problems Problem Type SNOMED Code ICD Code Onset Dates Problem Status W/U Status Risk Notes Problem Plantar wart (68829922) Plantar wart (B07.0) Active confirmed Plan Of Treatment No Information Insurance Providers Payer Name Payer Address Payer Phone Subscriber Number Group Number Insured Name Patient Relationship to Insured Coverage Start Date Coverage End Date [employer] [address] [place] Galvez [phone] [id number] Melecio Nava Spouse - patient is the spouse of the insured Medical (General) History Medical History History ICD Code Anxiety Headaches/Migraines Depression Warts Chicken pox Surgical History Surgery Date(Month/Year) 06/29/12&03/24/2015
[2025-07-29 09:00] VITALS: BP 109/52; PULSE 68; RESP 16; TEMP 36.6; O2SAT 99
[2025-07-29 09:31] VITALS: BP 109/52; PULSE 68; RESP 16; TEMP 36.6; O2SAT 99
== END 2025-07-29 09:31 | disposition home or self-care (01) ==
PROVIDERS: Emergency Provider Emergency Medicine
DX: S81.852A Open bite, left lower leg, initial encounter (principal); W54.0XXA Bitten by dog, initial encounter; Y93.9 Activity, unspecified; Y92.9 Unspecified place or not applicable; Y99.9 Unspecified external cause status
CPT/HCPCS: 99283; 99284